=== PATIENT | male | born 1980 | race Caucasian/White ===

== ENCOUNTER 2019-06-30 20:45 | Emergency (ER) | payer SELFPAY ==
[2019-06-30 20:48] VITALS: BP 159/116; PULSE 115; RESP 18; TEMP 36.7; O2SAT 96; BMI 36.1
--- NOTE | 2019-06-30 21:00 | ED_ITS ---
Entered by Laura Reinoso, acting as scribe for Johnnie Murphy MD, [facility] Jun 30, 2019 20:45 Documented by User: Johnnie Murphy MD, [facility] 07/19/19 21:47 HPI - Psych General: Chief Complaint: Psychiatric Symptoms Stated Complaint: si Time Seen by Provider: 06/30/19 21:00 Source: patient Mode of arrival: ambulatory Limitations: no limitations History of Present Illness: HPI Narrative: 38 yo Male presents to ED with complaint of suicidal ideation and ETOH. Pt states that he has been having suicidal thoughts. Pt states that he has been having these thoughts all of his life. Pt states that he would never act on it and doesn't have a plan. Pt states that he drank a fifth of vodka tonight. Pt denies any illicit drug use. Pt states that he noticed a couple of weeks ago that he has a nodule on his right nipple and it is painful. complaint: suicidal ideation Onset (ago): year(s) Duration: constant History of same: Yes Relieving factors: none Exacerbating factors: alcohol Context: recent alcohol abuse Associated psychiatric symptoms: suicidal ideation Associated symptoms: Reports suicidal ideation Treatments prior to arrival: none If self harm: admits thoughts of self harm Review of Systems General: Reports: 10 or more systems reviewed and unremarkable except in HPI and below Const: Denies: fever, chills or body aches Eyes: Denies: change in vision or blurry vision ENMT: Denies: throat pain, enlarged tonsils, painful swallowing, hoarseness, mouth pain or swelling of lips/tongue Card: Denies: chest pain, palpitations, irregular heart rhythm, edema or swelling of feet/ankles Resp: Denies: shortness of breath, productive cough or non-productive cough GI: Denies: abdominal pain, nausea or vomiting : Denies: flank pain, painful urination, urinary frequency, urinary urgency or urinary hesitancy Musc: Denies: neck pain, back pain or extremity swelling Skin/Breast: Denies: rash, itching or redness Neuro: Denies: headache, numbness in extremities or weakness in extremities Psych: Reports: suicidal ideation Endo: Denies: excessive urination, excessive thirst or tired all the time PFS ED PFSH: Medical History Alcohol dependence, uncomplicated Panic disorder [episodic paroxysmal anxiety] Social History Smoking and tobacco status: current every day smoker cigarettes Packs smoked per day: 1 Years cigarettes smoked: 20 Quit status (tobacco): considering quitting Second hand smoke exposure: No Physical Exam Const: COMMON NORMALS: no apparent distress, average body habitus, oriented x3, no limitations, healthy appearing, alert and well nourished HENMT: COMMON NORMALS: normocephalic, head/scalp atraumatic and moist oral mucous membranes HEAD & SCALP: normocephalic and atraumatic Eye: COMMON NORMALS: PERRL, EOMs intact bilaterally, conjunctivae normal and no scleral icterus CONJUNCTIVA: Yes conjunctivae normal PUPIL: Yes PERRL Neck/C-Spine: COMMON NORMALS: full ROM, supple, no meningeal signs, no JVD and no carotid bruits Chest: COMMONS NORMALS: inspection of chest normal and palpation of chest normal Resp: COMMON NORMALS: normal respiratory effort, no retractions, no use of accessory muscles, clear to auscultation bilaterally and percussion normal AUSCULTATION: clear to auscultation bilaterally PERCUSSION: percussion normal Cardio: COMMON NORMALS: no JVD, regular rate, regular rhythm, S1 normal heart sound, S2 normal heart sound, no gallops, no clicks, no murmurs, no rub and peripheral pulses 2+ throughout RATE: regular rate RHYTHM: regular rhythm HEART SOUNDS: S1 normal and S2 normal PERIPHERAL PULSES: pulses 2+ throughout GI: COMMON NORMALS: normal to inspection, nondistended, normoactive bowel sounds, soft to palpation, non-tender, no hepatosplenomegaly, no masses and no bruits PALPATION: Yes soft and Yes no hepatosplenomegaly : COMMON NORMALS: Yes no CVA tenderness BLADDER/KIDNEY EXAM: Yes no CVA tenderness Back/Pelvis: COMMON NORMALS: no CVA tenderness Extremity: COMMON NORMALS: normal to inspection, full ROM, normal capillary refill, no calf tenderness and no pedal edema Neuro: COMMON NORMALS: oriented x3 SENSORIUM/ORIENTATION: Yes alert MENINGEAL SIGNS: Yes no meningeal signs Skin: COMMON NORMALS: no rashes or lesions noted, no wounds, skin turgor normal, no jaundice, no petechiae and no mottling GENERAL SKIN EXAM: no rashes or lesions noted and turgor normal MDM - Psych Lab Data: Labs: Lab Results 06/30/19 06/30/19 06/30/19 Range/Units 00:37 21:15 21:15 WBC 9.3 (4.0-10.0) 10^3/ uL RBC 5.00 (4.1-5.3) 10^6/u L Hgb 15.4 (11.7-16.6) g/dL Hct 45.2 (42.0-52.0) % MCV 90.4 (80-94) fL MCH 30.8 (28.0-34.0) pg MCHC 34.1 (30.0-36.0) g/dL RDW 11.9 L (12.1-15.1) % Plt Count 219 (130-400) 10^3/c mm MPV 10.8 H (7.4-10.4) fL Neut % (Auto) 45.7 % Lymph % (Auto) 42.0 % [place] % (Auto) 7.8 % Eos % (Auto) 3.0 % Baso % (Auto) 1.0 % Neut # (Auto) 4.2 (1.8-7.7) 10^3/u L Lymph # (Auto) 3.9 (0.8-4.8) 10^3/u L [place] # (Auto) 0.7 (0.2-0.9) 10^3/u L Eos # (Auto) 0.3 (0.0-0.8) 10^3/u L Baso # (Auto) 0.1 (0.0-0.1) 10^3/u L Nucleated RBC % (a uto) 0 % Nucleated RBCs # 0.0 /100WBC Sodium 138 (136-145) mmol/L Potassium 3.7 (3.5-5.1) mmol/L Chloride 96 L (98-107) mmol/L Carbon Dioxide 27 (22-29) mmol/L Anion Gap 18.7 (5-19) BUN 11 (6-20) mg/dL Creatinine 0.8 (0.7-1.2) mg/dL GFR Calculation 107.1 (90-130) mL/min Glucose 222 H (65-115) mg/dL Calculated Osmolal ity 289 (285-295) mOsm/k g Calcium 9.6 (8.5-10.5) mg/dL Total Bilirubin 0.3 (0.15-1.2) mg/dL AST 81 H (0-40) U/L ALT 89 H (0-41) U/L Alkaline Phosphata se 87 (40-130) IU/L Total Protein 7.8 (6.6-8.7) g/dL Albumin 4.2 (3.5-5.2) g/dL Globulin 3.6 (1.3-4.6) g/dL Lipase (13-60) U/L TSH 4.48 H (0.27-4.20) uIU/ mL Urine Color (Yellow) Urine Appearance (CLEAR) Urine pH (5-7) Ur Specific Gravit y (1.005-1.030) Urine Protein (Negative) Urine Glucose (UA) (Normal) Urine Ketones (Negative) Urine Blood (Negative) Urine Nitrate (Negative) Urine Bilirubin (NEGATIVE) Urine Urobilinogen (Negative) mg/dL Ur Leukocyte Annabel ase (Negative) Salicylates < 0.3 L (3-10) mg/dL Urine Opiates Scre en (Negative) ng/mL Acetaminophen < 5.0 L (10-30) ug/mL Ur Barbiturates Sc reen (Negative) ng/mL Ur Phencyclidine S crn (Negative) ng/mL Ur Amphetamines Sc reen (Negative) ng/mL U Benzodiazepines Scrn (Negative) ng/mL Urine Cocaine Scre en (Negative) ng/mL U Marijuana (THC) Screen (Negative) ng/mL Ethyl Alcohol Cancelled 256 H 06/30/19 06/30/19 07/01/19 Range/Units 21:30 21:30 00:36 WBC (4.0-10.0) 10^3/ uL RBC (4.1-5.3) 10^6/u L Hgb (11.7-16.6) g/dL Hct (42.0-52.0) % MCV (80-94) fL MCH (28.0-34.0) pg MCHC (30.0-36.0) g/dL RDW (12.1-15.1) % Plt Count (130-400) 10^3/c mm MPV (7.4-10.4) fL Neut % (Auto) % Lymph % (Auto) % [place] % (Auto) % Eos % (Auto) % Baso % (Auto) % Neut # (Auto) (1.8-7.7) 10^3/u L Lymph # (Auto) (0.8-4.8) 10^3/u L [place] # (Auto) (0.2-0.9) 10^3/u L Eos # (Auto) (0.0-0.8) 10^3/u L Baso # (Auto) (0.0-0.1) 10^3/u L Nucleated RBC % (a uto) % Nucleated RBCs # /100WBC Sodium (136-145) mmol/L Potassium (3.5-5.1) mmol/L Chloride (98-107) mmol/L Carbon Dioxide (22-29) mmol/L Anion Gap (5-19) BUN (6-20) mg/dL Creatinine (0.7-1.2) mg/dL GFR Calculation (90-130) mL/min Glucose (65-115) mg/dL Calculated Osmolal ity (285-295) mOsm/k g Calcium (8.5-10.5) mg/dL Total Bilirubin (0.15-1.2) mg/dL AST (0-40) U/L ALT (0-41) U/L Alkaline Phosphata se (40-130) IU/L Total Protein (6.6-8.7) g/dL Albumin (3.5-5.2) g/dL Globulin (1.3-4.6) g/dL Lipase (13-60) U/L TSH (0.27-4.20) uIU/ mL Urine Color Yellow (Yellow) Urine Appearance Clear (CLEAR) Urine pH 5 (5-7) Ur Specific Gravit y 1.020 (1.005-1.030) Urine Protein Neg (Negative) Urine Glucose (UA) 2+ (Normal) Urine Ketones Negative (Negative) Urine Blood Neg (Negative) Urine Nitrate Negative (Negative) Urine Bilirubin Neg (NEGATIVE) Urine Urobilinogen Norm (Negative) mg/dL Ur Leukocyte Annabel ase Negative (Negative) Salicylates (3-10) mg/dL Urine Opiates Scre en Negative (Negative) ng/mL Acetaminophen (10-30) ug/mL Ur Barbiturates Sc reen Negative (Negative) ng/mL Ur Phencyclidine S crn Negative (Negative) ng/mL Ur Amphetamines Sc reen Negative (Negative) ng/mL U Benzodiazepines Scrn Negative (Negative) ng/mL Urine Cocaine Scre en Negative (Negative) ng/mL U Marijuana (THC) Screen Negative (Negative) ng/mL Ethyl Alcohol 171 H 07/01/19 07/01/19 Range/Units 04:20 04:20 WBC (4.0-10.0) 10^3/ uL RBC (4.1-5.3) 10^6/u L Hgb (11.7-16.6) g/dL Hct (42.0-52.0) % MCV (80-94) fL MCH (28.0-34.0) pg MCHC (30.0-36.0) g/dL RDW (12.1-15.1) % Plt Count (130-400) 10^3/c mm MPV (7.4-10.4) fL Neut % (Auto) % Lymph % (Auto) % [place] % (Auto) % Eos % (Auto) % Baso % (Auto) % Neut # (Auto) (1.8-7.7) 10^3/u L Lymph # (Auto) (0.8-4.8) 10^3/u L [place] # (Auto) (0.2-0.9) 10^3/u L Eos # (Auto) (0.0-0.8) 10^3/u L Baso # (Auto) (0.0-0.1) 10^3/u L Nucleated RBC % (a uto) % Nucleated RBCs # /100WBC Sodium (136-145) mmol/L Potassium (3.5-5.1) mmol/L Chloride (98-107) mmol/L Carbon Dioxide (22-29) mmol/L Anion Gap (5-19) BUN (6-20) mg/dL Creatinine (0.7-1.2) mg/dL GFR Calculation (90-130) mL/min Glucose (65-115) mg/dL Calculated Osmolal ity (285-295) mOsm/k g Calcium (8.5-10.5) mg/dL Total Bilirubin (0.15-1.2) mg/dL AST (0-40) U/L ALT (0-41) U/L Alkaline Phosphata se (40-130) IU/L Total Protein (6.6-8.7) g/dL Albumin (3.5-5.2) g/dL Globulin (1.3-4.6) g/dL Lipase 34 (13-60) U/L TSH (0.27-4.20) uIU/ mL Urine Color (Yellow) Urine Appearance (CLEAR) Urine pH (5-7) Ur Specific Gravit y (1.005-1.030) Urine Protein (Negative) Urine Glucose (UA) (Normal) Urine Ketones (Negative) Urine Blood (Negative) Urine Nitrate (Negative) Urine Bilirubin (NEGATIVE) Urine Urobilinogen (Negative) mg/dL Ur Leukocyte Annabel ase (Negative) Salicylates (3-10) mg/dL Urine Opiates Scre en (Negative) ng/mL Acetaminophen (10-30) ug/mL Ur Barbiturates Sc reen (Negative) ng/mL Ur Phencyclidine S crn (Negative) ng/mL Ur Amphetamines Sc reen (Negative) ng/mL U Benzodiazepines Scrn (Negative) ng/mL Urine Cocaine Scre en (Negative) ng/mL U Marijuana (THC) Screen (Negative) ng/mL Ethyl Alcohol 87 H EKG Data^: EKG 1: Attestation: I personally reviewed and interpreted this EKG as follows: EKG interpretation date: 06/30/19 EKG interpretation time: 21:55 Prior EKG tracings: not available for review Interpretation: Normal sinus rhythm. Heart rate [address] changes. Discharge Plan Discharge Patient Disposition: Psych Hosp/Unit w Plan Readm Referrals: Flaco White MD [Primary Care Provider] - [facility], [Family Provider] - Discharge Date/Time: 07/01/19 12:34 Sign Out Sign Out Data: Patient Sign Out occurred on 06/30/19 at 23:37. Patient's care was discussed, and care was transferred from to [facility]. Coding Level of Care Code ED Development Representative for Chg Fwd Exam Comprehensive Documented by User: America Mckinnon 07/01/19 06:20 HPI - Psych General: Chief Complaint: Psychiatric Symptoms Stated Complaint: si Time Seen by Provider: 06/30/19 21:00 PFSH ED PFSH: Medical History Alcohol dependence, uncomplicated Panic disorder [episodic paroxysmal anxiety] Social History Smoking and tobacco status: current every day smoker cigarettes Packs smoked per day: 1 Years cigarettes smoked: 20 Quit status (tobacco): considering quitting Second hand smoke exposure: No MDM - Psych Lab Data: Labs: Lab Results 06/30/19 06/30/19 06/30/19 Range/Units 00:37 21:15 21:15 WBC 9.3 (4.0-10.0) 10^3/ uL RBC 5.00 (4.1-5.3) 10^6/u L Hgb 15.4 (11.7-16.6) g/dL Hct 45.2 (42.0-52.0) % MCV 90.4 (80-94) fL MCH 30.8 (28.0-34.0) pg MCHC 34.1 (30.0-36.0) g/dL RDW 11.9 L (12.1-15.1) % Plt Count 219 (130-400) 10^3/c mm MPV 10.8 H (7.4-10.4) fL Neut % (Auto) 45.7 % Lymph % (Auto) 42.0 % [place] % (Auto) 7.8 % Eos % (Auto) 3.0 % Baso % (Auto) 1.0 % Neut # (Auto) 4.2 (1.8-7.7) 10^3/u L Lymph # (Auto) 3.9 (0.8-4.8) 10^3/u L [place] # (Auto) 0.7 (0.2-0.9) 10^3/u L Eos # (Auto) 0.3 (0.0-0.8) 10^3/u L Baso # (Auto) 0.1 (0.0-0.1) 10^3/u L Nucleated RBC % (a uto) 0 % Nucleated RBCs # 0.0 /100WBC Sodium 138 (136-145) mmol/L Potassium 3.7 (3.5-5.1) mmol/L Chloride 96 L (98-107) mmol/L Carbon Dioxide 27 (22-29) mmol/L Anion Gap 18.7 (5-19) BUN 11 (6-20) mg/dL Creatinine 0.8 (0.7-1.2) mg/dL GFR Calculation 107.1 (90-130) mL/min Glucose 222 H (65-115) mg/dL Calculated Osmolal ity 289 (285-295) mOsm/k g Calcium 9.6 (8.5-10.5) mg/dL Total Bilirubin 0.3 (0.15-1.2) mg/dL AST 81 H (0-40) U/L ALT 89 H (0-41) U/L Alkaline Phosphata se 87 (40-130) IU/L Total Protein 7.8 (6.6-8.7) g/dL Albumin 4.2 (3.5-5.2) g/dL Globulin 3.6 (1.3-4.6) g/dL Lipase (13-60) U/L TSH 4.48 H (0.27-4.20) uIU/ mL Urine Color (Yellow) Urine Appearance (CLEAR) Urine pH (5-7) Ur Specific Gravit y (1.005-1.030) Urine Protein (Negative) Urine Glucose (UA) (Normal) Urine Ketones (Negative) Urine Blood (Negative) Urine Nitrate (Negative) Urine Bilirubin (NEGATIVE) Urine Urobilinogen (Negative) mg/dL Ur Leukocyte Annabel ase (Negative) Salicylates < 0.3 L (3-10) mg/dL Urine Opiates Scre en (Negative) ng/mL Acetaminophen < 5.0 L (10-30) ug/mL Ur Barbiturates Sc reen (Negative) ng/mL Ur Phencyclidine S crn (Negative) ng/mL Ur Amphetamines Sc reen (Negative) ng/mL U Benzodiazepines Scrn (Negative) ng/mL Urine Cocaine Scre en (Negative) ng/mL U Marijuana (THC) Screen (Negative) ng/mL Ethyl Alcohol Cancelled 256 H 06/30/19 06/30/19 07/01/19 Range/Units 21:30 21:30 00:36 WBC (4.0-10.0) 10^3/ uL RBC (4.1-5.3) 10^6/u L Hgb (11.7-16.6) g/dL Hct (42.0-52.0) % MCV (80-94) fL MCH (28.0-34.0) pg MCHC (30.0-36.0) g/dL RDW (12.1-15.1) % Plt Count (130-400) 10^3/c mm MPV (7.4-10.4) fL Neut % (Auto) % Lymph % (Auto) % [place] % (Auto) % Eos % (Auto) % Baso % (Auto) % Neut # (Auto) (1.8-7.7) 10^3/u L Lymph # (Auto) (0.8-4.8) 10^3/u L [place] # (Auto) (0.2-0.9) 10^3/u L Eos # (Auto) (0.0-0.8) 10^3/u L Baso # (Auto) (0.0-0.1) 10^3/u L Nucleated RBC % (a uto) % Nucleated RBCs # /100WBC Sodium (136-145) mmol/L Potassium (3.5-5.1) mmol/L Chloride (98-107) mmol/L Carbon Dioxide (22-29) mmol/L Anion Gap (5-19) BUN (6-20) mg/dL Creatinine (0.7-1.2) mg/dL GFR Calculation (90-130) mL/min Glucose (65-115) mg/dL Calculated Osmolal ity (285-295) mOsm/k g Calcium (8.5-10.5) mg/dL Total Bilirubin (0.15-1.2) mg/dL AST (0-40) U/L ALT (0-41) U/L Alkaline Phosphata se (40-130) IU/L Total Protein (6.6-8.7) g/dL Albumin (3.5-5.2) g/dL Globulin (1.3-4.6) g/dL Lipase (13-60) U/L TSH (0.27-4.20) uIU/ mL Urine Color Yellow (Yellow) Urine Appearance Clear (CLEAR) Urine pH 5 (5-7) Ur Specific Gravit y 1.020 (1.005-1.030) Urine Protein Neg (Negative) Urine Glucose (UA) 2+ (Normal) Urine Ketones Negative (Negative) Urine Blood Neg (Negative) Urine Nitrate Negative (Negative) Urine Bilirubin Neg (NEGATIVE) Urine Urobilinogen Norm (Negative) mg/dL Ur Leukocyte Annabel ase Negative (Negative) Salicylates (3-10) mg/dL Urine Opiates Scre en Negative (Negative) ng/mL Acetaminophen (10-30) ug/mL Ur Barbiturates Sc reen Negative (Negative) ng/mL Ur Phencyclidine S crn Negative (Negative) ng/mL Ur Amphetamines Sc reen Negative (Negative) ng/mL U Benzodiazepines Scrn Negative (Negative) ng/mL Urine Cocaine Scre en Negative (Negative) ng/mL U Marijuana (THC) Screen Negative (Negative) ng/mL Ethyl Alcohol 171 H 07/01/19 07/01/19 Range/Units 04:20 04:20 WBC (4.0-10.0) 10^3/ uL RBC (4.1-5.3) 10^6/u L Hgb (11.7-16.6) g/dL Hct (42.0-52.0) % MCV (80-94) fL MCH (28.0-34.0) pg MCHC (30.0-36.0) g/dL RDW (12.1-15.1) % Plt Count (130-400) 10^3/c mm MPV (7.4-10.4) fL Neut % (Auto) % Lymph % (Auto) % [place] % (Auto) % Eos % (Auto) % Baso % (Auto) % Neut # (Auto) (1.8-7.7) 10^3/u L Lymph # (Auto) (0.8-4.8) 10^3/u L [place] # (Auto) (0.2-0.9) 10^3/u L Eos # (Auto) (0.0-0.8) 10^3/u L Baso # (Auto) (0.0-0.1) 10^3/u L Nucleated RBC % (a uto) % Nucleated RBCs # /100WBC Sodium (136-145) mmol/L Potassium (3.5-5.1) mmol/L Chloride (98-107) mmol/L Carbon Dioxide (22-29) mmol/L Anion Gap (5-19) BUN (6-20) mg/dL Creatinine (0.7-1.2) mg/dL GFR Calculation (90-130) mL/min Glucose (65-115) mg/dL Calculated Osmolal ity (285-295) mOsm/k g Calcium (8.5-10.5) mg/dL Total Bilirubin (0.15-1.2) mg/dL AST (0-40) U/L ALT (0-41) U/L Alkaline Phosphata se (40-130) IU/L Total Protein (6.6-8.7) g/dL Albumin (3.5-5.2) g/dL Globulin (1.3-4.6) g/dL Lipase 34 (13-60) U/L TSH (0.27-4.20) uIU/ mL Urine Color (Yellow) Urine Appearance (CLEAR) Urine pH (5-7) Ur Specific Gravit y (1.005-1.030) Urine Protein (Negative) Urine Glucose (UA) (Normal) Urine Ketones (Negative) Urine Blood (Negative) Urine Nitrate (Negative) Urine Bilirubin (NEGATIVE) Urine Urobilinogen (Negative) mg/dL Ur Leukocyte Annabel ase (Negative) Salicylates (3-10) mg/dL Urine Opiates Scre en (Negative) ng/mL Acetaminophen (10-30) ug/mL Ur Barbiturates Sc reen (Negative) ng/mL Ur Phencyclidine S crn (Negative) ng/mL Ur Amphetamines Sc reen (Negative) ng/mL U Benzodiazepines Scrn (Negative) ng/mL Urine Cocaine Scre en (Negative) ng/mL U Marijuana (THC) Screen (Negative) ng/mL Ethyl Alcohol 87 H Discharge Plan Discharge Patient Disposition: Psych Hosp/Unit w Plan Readm Referrals: Flaco White MD [Primary Care Provider] - [facility], [Family Provider] - Discharge Date/Time: 07/01/19 12:34 Sign Out Sign Out Data: Patient Sign Out occurred on 06/30/19 at 23:37. Patient's care was discussed, and care was transferred from to [facility] Mckinnon. Coding Level of Care Code ED Development Representative for Chg Fwd Exam Comprehensive The documentation recorded by the Kemar gonzales Carmen, accurately reflects the service I personally performed and the decisions made by Katherine flores Adegoke I, MD, [facility] Jun 30, 2019 20:45
--- NOTE | 2019-06-30 21:08 | ECG_ITS ---
Measurements Intervals [place] Rate: 94 P: 51 AL: 165 QRS: 94 QRSD: 104 T: 21 QT: 351 QTc: 441 SINUS RHYTHM BORDERLINE RIGHT AXIS DEVIATION [QRS AXIS > 90] Compared to ECG 12/05/2018 00:34:54 Sinus tachycardia no longer present Electronically Signed On 07-01-2019 9:11:52 CDT by Delia Carreon [id number]
[2019-06-30 21:32] LABS: Basophils # 0.1 10^3/uL (0.0-0.1); Eosinophils # 0.3 10^3/uL (0.0-0.8); Hematocrit 45.2 % (42.0-52.0); Hemoglobin 15.4 g/dL (11.7-16.6); Lymphocytes # 3.9 10^3/uL (0.8-4.8); Mean Corpuscular HGB Conc 34.1 g/dL (30.0-36.0); Mean Corpuscular Hemoglobin 30.8 pg (28.0-34.0); Mean Corpuscular Volume 90.4 fL (80-94); Mean Platelet Volume 10.8 fL (7.4-10.4); Monocytes # 0.7 10^3/uL (0.2-0.9); Monocytes % 7.8 %; Neutrophils # 4.2 10^3/uL (1.8-7.7); Neutrophils % 45.7 %; Nucleated Red Blood Cells % 0 %; Platelet Count 219 10^3/cmm (130-400); Red Cell Distribution Width 11.9 % (12.1-15.1); White Blood Count 9.3 10^3/uL (4.0-10.0)
[2019-06-30 22:02] LABS: Alanine Aminotransferase 89 U/L (0-41); Albumin Level 4.2 g/dL (3.5-5.2); Alcohol Level 256 mg/dL (0-10); Alkaline Phosphatase 87 IU/L (40-130); Anion Gap 18.7 (5-19); Aspartate Amino Transferase 81 U/L (0-40); Blood Urea Nitrogen 11 mg/dL (6-20); Calcium 9.6 mg/dL (8.5-10.5); Carbon Dioxide 27 mmol/L (22-29); Chloride 96 mmol/L (98-107); Globulin 3.6 g/dL (1.3-4.6); Glomerular Filtration Rate 107.1 mL/min (90-130); Glucose 222 mg/dL (65-115); Osmolality Calculated 289 mOsm/kg (285-295); Potassium 3.7 mmol/L (3.5-5.1); Sodium 138 mmol/L (136-145); Thyroid Stimulating Hormone 4.48 uIU/mL (0.27-4.20); Total Bilirubin 0.3 mg/dL (0.15-1.2); Total Protein 7.8 g/dL (6.6-8.7)
[2019-06-30 22:08] LABS: Acetaminophen < 5.0 ug/mL (10-30); Salicylate < 0.3 mg/dL (3-10)
[2019-06-30] MEDS: LORazepam 1 mg Tablet PO (22:23)
[2019-06-30] MEDS: nicotine 21 mg Patch 1 PATCH TRANSDERMA (22:23)
[2019-06-30 22:27] LABS: Add Urine Microscopic? NO
[2019-06-30 22:29] LABS: Amphetamines Screen Urine Negative (Negative); Barbiturates Screen Urine Negative (Negative); Benzodiazepines Screen Urine Negative (Negative); Cocaine Screen Urine Negative (Negative); Opiate Screen Urine Negative (Negative); PCP Screen Urine Negative (Negative); THC Screen Urine Negative (Negative)
[2019-06-30 22:31] LABS: Bilirubin Urine Neg (NEGATIVE); Blood Urine Neg (Negative); Glucose Urine UA 2+ (Normal); Ketones Urine Negative (Negative); Leukocyte Esterase Urine Negative (Negative); Nitrate Urine Negative (Negative); Protein Urine Neg (Negative); Urine Appearance Clear (CLEAR); Urine Color Yellow (Yellow); Urobilinogen Urine Norm (Negative); pH Urine 5 (5-7)
[2019-07-01 02:34] LABS: Alcohol Level 171 mg/dL (0-10)
[2019-07-01 04:43] LABS: Alcohol Level 87 mg/dL (0-10)
--- NOTE | 2019-07-01 05:00 | PC.NURSE ---
Patient resting with eyes closed in bed, 1:1 sitter at bedside.
--- NOTE | 2019-07-01 05:02 | PC.NURSE ---
Patient remains calm and cooperative, resting in bed with eyes closed. 1:1 sitter at bedside.
--- NOTE | 2019-07-01 05:08 | PC.NURSE ---
Received call from [facility]. Intake nurse spoke to patient and patient told nurse that he has had these suicidal thoughts forever and has never acted on them before. He told the intake nurse that [facility] had taken him off all his medications and he just wants his Klonopin. Intake nurse advsied this nurse that she is unsure of whether provider will accept patient to their facility if he is going to be unwilling to take any other anti-depressive medications.
[2019-07-01 06:37] VITALS: BP 148/91; PULSE 106; RESP 20
[2019-07-01 06:38] VITALS: O2SAT 94
[2019-07-01 07:06] VITALS: BP 120/76; PULSE 90; RESP 16; O2SAT 98
[2019-07-01 07:14] VITALS: TEMP 36.7
--- NOTE | 2019-07-01 07:24 | PC.NURSE ---
Patient refusing to sign transfer form, provider notified.
--- NOTE | 2019-07-01 07:36 | PC.NURSE ---
Attempted to call report to [facility], stated nurse would call back.
--- NOTE | 2019-07-01 08:11 | PC.NURSE ---
[facility] states they received fax and will call back.
--- NOTE | 2019-07-01 09:15 | PC.NURSE ---
Paper work re-faxed due to them not receiving every paper faxed prior.
[2019-07-01 10:26] VITALS: BP 124/82; PULSE 92; RESP 18; O2SAT 98
[2019-07-01] MEDS: lidocaine 2% viscous 15 ML, aluminum-mag hydrox-simethicon 30 ML, sucralfate oral liq 1 GM PO (10:40)
[2019-07-01 10:49] LABS: Lipase 34 U/L (13-60)
[2019-07-01] MEDS: LORazepam 1 mg Tablet PO (12:33)
== END 2019-07-01 12:34 | disposition psychiatric hospital, planned readmission (93) ==
PROVIDERS: Family Medicine; Emergency Provider Emergency Medicine; PCP Family Medicine
DX: R45.851 Suicidal ideations (principal); F17.210 Nicotine dependence, cigarettes, uncomplicated
CPT/HCPCS: 12345; 80053; 80306; 80307; 81003; 83690; 84443; 85025; 93005; 93010; 99284; 99285; A9270

== ENCOUNTER 2019-11-09 17:41 | Emergency (ER) | payer SELFPAY ==
[2019-11-09 17:43] VITALS: BP 209/140; PULSE 106; RESP 17; TEMP 36.3; O2SAT 97; BMI 36.5
--- NOTE | 2019-11-09 17:45 | ED_ITS ---
HPI - Back Pain/Injury General: Chief Complaint: Back Pain/Injury Stated Complaint: back pain Time Seen by Provider: 11/09/19 17:43 Source: patient Mode of arrival: wheelchair Limitations: no limitations History of Present Illness: HPI Narrative: Patient is a 39-year-old male who presents to ED today for evaluation of mid back pain. Patient tells me he has suffered from chronic back pain but states he will have exacerbations if he bends/twists/turns/lifts wrong. He states 2 days ago he heard a pop in his back. He states pain seemed to go away on its own however earlier today he was bending over to untie his dog from a leash and heard the same pop and states pain since then has been severe. He states he initially noticed numbness to his left arm however this is subsided. 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 He often complained about the questions being asked and generally uncooperative. MD elicited complaint: back pain Pertinent past history: prior back pain Onset (ago): hour(s) Timing: constant Severity: severe Pain scale (0-10): 10 Similar Symptoms Previously: Yes Location: thoracic spine Exacerbating factors: movement, supine positioning, sitting upright, walking, coughing/sneezing and lifting Relieving factors: none Context: bending Associated symptoms: Reports tingling/numbness/burning (L arm however this has subsided ); Deny abdominal pain, chills, dysuria, fever(s) or urinary urgency Work related injury: No Review of Systems Const: Denies: fever(s) or chills Card: Denies: chest pain Resp: Denies: dyspnea GI: Denies: abdominal pain : Denies: flank pain, difficulty urinating, dysuria, urinary frequency or urinary urgency Musc: Reports: neck pain (chronic-at baseline) and back pain; Denies: extremity pain, extremity swelling, joint pain or joint swelling Neuro: Denies: headache(s), weakness in extremities or sensory changes (L arm- subsided now) [facility] ED PFSH: Medical History (Updated 11/09/19 @ 19:56 by IMAN Hernández) Alcohol dependence, uncomplicated Panic disorder [episodic paroxysmal anxiety] Social History Smoking and tobacco status: current every day smoker cigarettes Packs smoked per day: 1 Years cigarettes smoked: 20 Quit status (tobacco): considering quitting Second hand smoke exposure: No Physical Exam Const: COMMON NORMALS: no acute distress, patient oriented x3, no limitations and alert HENMT: COMMON NORMALS: normocephalic and atraumatic HEAD & SCALP: normocephalic and atraumatic Neck/C-Spine: COMMON NORMALS: full ROM OTHER: pt jumps off table when I place even a finger on his neck-not even palpate; he tells me I always hurt in my neck but that's not my problem today! Resp: COMMON NORMALS: normal respiratory effort and clear to auscultation bilaterally AUSCULTATION: clear to auscultation bilaterally Cardio: COMMON NORMALS: regular rate and regular rhythm RATE: regular rate RHYTHM: regular rhythm Back/Pelvis: THORACIC SPINE/UPPER BACK: Yes thoracic spinal tenderness (see below) and Yes paraspinal muscle tenderness LUMBAR SPINE/LOWER BACK: Yes normal to inspection, No lumbar spinal tenderness and No paraspinal muscle tenderness PELVIS: Yes buttocks normal SACROILIAC JOINTS: Yes SI joints normal OTHER: pt becomes angry and jumps off table and reaches around his back to swat at my hand with even my finger touching his back-not even palpating; I told patient it is important to perform a thorough physical evaluation; overall very uncooperative with examination; he tells me he is tender to mid-back and to the left Extremity: COMMON NORMALS: normal to inspection and full ROM GENERAL: Yes normal exam except as noted Neuro: COMMON NORMALS: patient oriented x3, moves all extremities, no focal motor deficits and no sensory deficits noted SENSORIUM/ORIENTATION: Yes alert Skin: COMMON NORMALS: no rashes or lesions noted GENERAL SKIN EXAM: no ra shes or lesions noted Course Vital Signs: Vital signs: Vital Signs Temperature 97.4 F L 11/09/19 17:43 Pulse Rate 88 11/09/19 19:43 Respiratory Rate 17 11/09/19 19:43 Blood Pressure 154/78 11/09/19 19:43 Pulse Oximetry 99 11/09/19 19:43 MDM - Back Pain/Injury MDM Narrative: Medical decision making narrative: asking for refills on BP/G ERD meds Imaging Data^: XR thoracic: My impression: no acute fxs noted; anterior osteophytes noted-unchanged from previous Discharge Plan Discharge Patient Disposition: Home Clinical Impression: Strain of mid-back, Hypertension Condition: Stable Prescriptions: New cyclobenzaprine 10 mg tablet 10 mg PO TID Qty: 14 RF: 0 Medrol (Earl) 4 mg tablets,dose pack See Rx Instructions .ROUTE .COMPLEX Qty: 21 RF: 0 Continued valsartan 80 mg tablet 160 mg PO DAILY Qty: 30 RF: 0 amlodipine 10 mg tablet 10 mg PO DAILY Qty: 30 RF: 0 omeprazole 20 mg capsule,delayed release(DR/EC) 40 mg PO DAILY Qty: 30 RF: 0 hydrochlorothiazide 25 mg tablet 25 mg PO QAM Qty: 30 RF: 0 No Action sertraline [Zoloft] 100 mg tablet 150 mg PO QAM Qty: 45 RF: 2 hydroxyzine pamoate 50 mg capsule 50 mg PO QID PRN (Reason: anxiety) Qty: 120 RF: 2 gabapentin 400 mg capsule 400 mg PO QID Qty: 120 RF: 2 Discharge Orders: Discharge Order (Routine); Ordered 11/09/19 Ordered By: Skye Mcnair Referrals: Flaco White MD [Primary Care Provider] - Patient Instructions: Muscle Spasm (ED), Back Pain (ED) Interventions: ED Discharge Assessment Last Done: 11/09/19 19:43 ED Charges Last Done: 11/09/19 19:43 Discharge Date/Time: 11/09/19 19:46 Coding Level of Care Code ED Forward Air Controller/Air Officer for Chg Fwd Exam Comprehensive
[2019-11-09 17:56] VITALS: BP 174/128; PULSE 104; O2SAT 98
--- NOTE | 2019-11-09 18:01 | XRR_ITS ---
PROCEDURE INFORMATION: Exam: XR Thoracic Spine, 3 Views Exam date and time: 11/09/2019 6:54 PM Age: 39 years old Clinical indication: Pain in thoracic spine; Additional info: Back pain TECHNIQUE: Imaging protocol: XR of the thoracic spine, 3 views. COMPARISON: CR Thoracic Spine 3+ views* [id number] 02/04/2018 12:17 AM FINDINGS: Vertebrae: There is mild dextroscoliosis. There is diffuse osteopenia. Chronic appearing mild anterior wedging fracture deformities are noted at the thoracolumbar junction. There is no acute fracture or subluxation. Mild diffuse degenerative changes are noted. Soft tissues: Unremarkable. XR/XR thoracic spine 3V* [id number] IMPRESSION: There is no acute fracture or subluxation.
[2019-11-09] MEDS: orphenadrine 30 mg/mL Inj 2 mL 60 MG IM (18:18)
[2019-11-09] MEDS: ketorolac 60 mg/2 mL INJ IM (18:21)
[2019-11-09] MEDS: dexamethasone 10 mg/mL INJ 8 MG IM (18:25)
[2019-11-09 19:28] VITALS: RESP 18; O2SAT 98
[2019-11-09] MEDS: morphine 4 mg/mL SDV 1 mL IM (19:28)
[2019-11-09 19:43] VITALS: BP 154/78; PULSE 88; RESP 17; O2SAT 99
== END 2019-11-09 19:46 | disposition home or self-care (01) ==
PROVIDERS: Emergency Provider Physician Assistant; PCP Family Medicine
DX: S29.012A Strain of muscle and tendon of back wall of thorax, initial encounter (principal); I10 Essential (primary) hypertension; X50.1XXA Overexertion from prolonged static or awkward postures, initial encounter; F17.210 Nicotine dependence, cigarettes, uncomplicated
CPT/HCPCS: 12345; 72072; 96372; 99282; 99283; J1100; J1885; J2270; J2360

== ENCOUNTER 2020-02-16 16:39 | Emergency (ER) | payer SELFPAY ==
[2020-02-16 16:42] VITALS: BP 138/87; PULSE 114; RESP 18; TEMP 37.2; O2SAT 97; BMI 34.0
--- NOTE | 2020-02-16 16:58 | W.ED.ABDPA2 ---
HPI - Abdominal Pain General: Chief Complaint: Abdominal Pain Stated Complaint: abd pain/ possible pancreitis Time Seen by Provider: 02/16/20 16:56 History of Present Illness: HPI narrative: 39-year-old male with a history of pancreatitis. He comes in the front door complaining of epigastric and left upper quadrant pain radiating into his back. He says he has been sick for several days on and off he has been throwing up he says. He is also been having some diarrhea. He notes that there is blood in his stool. No fever. Suspiciously, he appears intoxicated. He says some things that do not make sense, and is somewhat somnolent. MD elicited complaint: abdominal pain Pertinent past history: other Onset (ago): day(s) Pain Consistency: constant Location: Epigastric and LUQ Severity: moderate Radiation: back Relieving factors: nothing Associated Symptoms: Reports change in bowel habits, diarrhea, dyspepsia, melena, nausea and vomiting; Denies dysuria and fever(s) Review of Systems Narrative: Review of systems is taken from the patient, but he appears at least somewhat intoxicated, and may be a poor historian Const: Denies: fever(s) Eyes: Denies: change in vision ENMT: Denies: odynophagia or sinus pain Card: Denies: chest pain, palpitations or irregular heart rhythm Resp: Reports: productive cough; Denies: dyspnea, non-productive cough or wheezing GI: Reports: nausea, vomiting, diarrhea, change in bowel habits and melena : Denies: dysuria Musc: Reports: back pain; Denies: neck pain Skin/Breast: Denies: rash or erythema Neuro: Reports: confusion; Denies: headache(s), dizziness, vertigo or seizure-like activity Psych: Denies: anxiety [facility] ED PFSH: Medical History (Updated 11/17/19 @ 00:00 by ) Alcohol dependence, uncomplicated Panic disorder [episodic paroxysmal anxiety] Social History Smoking and tobacco status: current every day smoker cigarettes Packs smoked per day: 1 Years cigarettes smoked: 20 Quit status (tobacco): considering quitting Second hand smoke exposure: No Physical Exam Const: GENERAL APPEARANCE: lethargic ORIENTATION/CONSCIOUSNESS: Yes oriented to person, Yes oriented to place and Yes lethargic; not oriented to time HENMT: COMMON NORMALS: normocephalic, external ears normal and Normal external nose present HEAD & SCALP: normocephalic FACE & SINUS: normal facial exam NOSE: Normal external nose present and No nasal discharge present EXTERNAL EAR: Yes external ears normal MOUTH: tongue normal Eye: COMMON NORMALS: Equal, round and reactive pupils present, EOMs intact bilaterally and conjunctivae normal EYELID: eyelids normal CONJUNCTIVA: Yes conjunctivae normal PUPIL: Yes Equal, round and reactive pupils present Neck/C-Spine: GENERAL: No tracheal deviation Chest: COMMONS NORMALS: normal inspection of the chest Resp: COMMON NORMALS: clear to auscultation bilaterally EFFORT & INSPECTION: No tachypneic, No respiratory distress, No retractions, No uses accessory muscles and No tracheal deviation AUSCULTATION: clear to auscultation bilaterally, no rhonchi, no wheezes and lung sounds not diminished Cardio: COMMON NORMALS: regular rate and regular rhythm RATE: regular rate RHYTHM: regular rhythm HEART SOUNDS: no murmurs PERIPHERAL PULSES: radial pulses present GI: INSPECTION: No abdominal distension AUSCULTATION: No Hyperactive bowel sounds present and No Hypoactive bowel sounds present PALPATION: Yes Guarding due to palpation present (GI) and No Rigid due to palpation PERCUSSION: no dullness to percussion and no tympanic to percussion Neuro: SENSORIUM/ORIENTATION: Yes oriented to person, Yes oriented to place, No oriented to time and Yes lethargic Psych: APPEARANCE: Yes unkempt ATTITUDE: Yes bizarre and Yes agitated ACTIVITY/MOTOR BEHAVIOR: Yes psychomotor slowing and Yes restless SPEECH: Yes slurred MOOD & AFFECT: Yes irritable and Yes fearful THOUGHT PROCESS: Circumstantial thought process present and incoherent THOUGHT CONTENT: No Suicidality present ATTENTION/CONCENTRATION: Yes attention grossly impaired and Yes concentration grossly impaired MEMORY/COGNITION: Yes memory grossly impaired and Yes cognition grossly impaired INSIGHT: Limited insight present (Psych) JUDGEMENT: Limited judgement present (Psych) Skin: COMMON NORMALS: no rashes or lesions noted GENERAL SKIN EXAM: no rashes or lesions noted Course Vital Signs: Vital signs: Vital Signs Temperature 99.0 F 02/16/20 16:42 Pulse Rate 114 H 02/16/20 16:42 Respiratory Rate 18 02/16/20 16:42 Blood Pressure 138/87 02/16/20 16:42 Pulse Oximetry 97 02/16/20 16:42 MDM - Abdominal Pain MDM Narrative: Medical decision making narrative: 39-year-old male who evidently with a history of pancreatitis. He has a reticulocyte behavior and appears intoxicated in the emergency department however, his white blood cell count was slightly elevated at 14.3. With a history of pancreatitis, CT was ordered. It shows no acute findings. Prior to of his CT results returning, the patient became agitated, got up, removed his own IV, and signed AMA papers to leave. He was later found out that his alcohol level is 332. A parcel carrier was with him. At the time, he was alert to person, place, situation, and relatively to time. Lab Data: Labs: Lab Results 02/16/20 02/16/20 02/16/20 Range/Units 17:21 17:21 17:21 WBC 14.3 H (4.0-10.0) 10^3/ uL RBC 5.69 H (4.1-5.3) 10^6/u L Hgb 15.6 (11.7-16.6) g/dL Hct 48.2 (42.0-52.0) % MCV 84.7 (80-94) fL MCH 27.4 L (28.0-34.0) pg MCHC 32.4 (30.0-36.0) g/dL RDW 11.9 L (12.1-15.1) % Plt Count 203 (130-400) 10^3/c mm MPV 10.6 H (7.4-10.4) fL Neut % (Auto) 55.1 % Lymph % (Auto) 34.0 % Forrest % (Auto) 7.3 % Eos % (Auto) 2.0 % Baso % (Auto) 1.1 % Neut # (Auto) 7.89 H (1.8-7.7) 10^3/u L Lymph # (Auto) 4.9 H (0.8-4.8) 10^3/u L Forrest # (Auto) 1.0 H (0.2-0.9) 10^3/u L Eos # (Auto) 0.3 (0.0-0.8) 10^3/u L Baso # (Auto) 0.2 H (0.0-0.1) 10^3/u L Nucleated RBC % (a uto) 0 % Nucleated RBCs # 0.0 /100WBC Sodium 133 L (136-145) mmol/L Potassium 3.5 (3.5-5.1) mmol/L Chloride 91 L (98-107) mmol/L Carbon Dioxide 27 (22-29) mmol/L Anion Gap 18.5 (5-19) BUN 12 (6-20) mg/dL Creatinine 0.5 L (0.7-1.2) mg/dL GFR Calculation 183.2 H (90-130) mL/min Glucose 289 H (65-115) mg/dL Calculated Osmolal ity 286 (285-295) mOsm/k g Lactate 3.2 H (0.5-2.2) mmol/L Calcium 9.4 (8.5-10.5) mg/dL Total Bilirubin 0.4 (0.15-1.2) mg/dL AST 112 H (0-40) U/L ALT 110 H (0-41) U/L Alkaline Phosphata se 218 H (40-130) IU/L C-Reactive Protein 27.3 H (0.0-4.9) mg/L Total Protein 8.0 (6.6-8.7) g/dL Albumin 4.2 (3.5-5.2) g/dL Globulin 3.8 (1.3-4.6) g/dL Lipase 62 H (13-60) U/L Urine Color (Yellow) Urine Appearance (CLEAR) Urine pH (5-7) Ur Specific Gravit y (1.005-1.030) Urine Protein (Negative) Urine Glucose (UA) (Normal) Urine Ketones (Negative) Urine Blood (Negative) Urine Nitrate (Negative) Urine Bilirubin (Negative) Urine Urobilinogen (Negative) mg/dL Ur Leukocyte Annabel ase (Negative) Ethyl Alcohol (0-10) mg/dL 02/16/20 02/16/20 Range/Units 17:21 17:42 WBC (4.0-10.0) 10^3/ uL RBC (4.1-5.3) 10^6/u L Hgb (11.7-16.6) g/dL Hct (42.0-52.0) % MCV (80-94) fL MCH (28.0-34.0) pg MCHC (30.0-36.0) g/dL RDW (12.1-15.1) % Plt Count (130-400) 10^3/c mm MPV (7.4-10.4) fL Neut % (Auto) % Lymph % (Auto) % Forrest % (Auto) % Eos % (Auto) % Baso % (Auto) % Neut # (Auto) (1.8-7.7) 10^3/u L Lymph # (Auto) (0.8-4.8) 10^3/u L Forrest # (Auto) (0.2-0.9) 10^3/u L Eos # (Auto) (0.0-0.8) 10^3/u L Baso # (Auto) (0.0-0.1) 10^3/u L Nucleated RBC % (a uto) % Nucleated RBCs # /100WBC Sodium (136-145) mmol/L Potassium (3.5-5.1) mmol/L Chloride (98-107) mmol/L Carbon Dioxide (22-29) mmol/L Anion Gap (5-19) BUN (6-20) mg/dL Creatinine (0.7-1.2) mg/dL GFR Calculation (90-130) mL/min Glucose (65-115) mg/dL Calculated Osmolal ity (285-295) mOsm/k g Lactate (0.5-2.2) mmol/L Calcium (8.5-10.5) mg/dL Total Bilirubin (0.15-1.2) mg/dL AST (0-40) U/L ALT (0-41) U/L Alkaline Phosphata se (40-130) IU/L C-Reactive Protein (0.0-4.9) mg/L Total Protein (6.6-8.7) g/dL Albumin (3.5-5.2) g/dL Globulin (1.3-4.6) g/dL Lipase (13-60) U/L Urine Color Straw (Yellow) Urine Appearance Clear (CLEAR) Urine pH 6.5 (5-7) Ur Specific Gravit y 1.005 (1.005-1.030) Urine Protein Neg (Negative) Urine Glucose (UA) Trace H (Normal) Urine Ketones Negative (Negative) Urine Blood Neg (Negative) Urine Nitrate Negative (Negative) Urine Bilirubin Neg (Negative) Urine Urobilinogen Norm (Negative) mg/dL Ur Leukocyte Annabel ase Negative (Negative) Ethyl Alcohol 332 H* (0-10) mg/dL Discharge Plan Discharge Patient Disposition: Left Against Medical Advice Prescriptions: No Action gabapentin 400 mg capsule 400 mg PO QID Qty: 120 RF: 2 venlafaxine [Effexor XR] 75 mg capsule,extended release 24hr 75 mg PO DAILY Qty: 30 RF: 2 sertraline [Zoloft] 100 mg tablet 150 mg PO QAM Qty: 45 RF: 2 hydroxyzine pamoate 50 mg capsule 50 mg PO QID PRN (Reason: anxiety) Qty: 120 RF: 2 cyclobenzaprine 10 mg tablet 10 mg PO TID Qty: 14 RF: 0 Medrol (Earl) 4 mg tablets,dose pack See Rx Instructions .ROUTE .COMPLEX Qty: 21 RF: 0 valsartan 80 mg tablet 160 mg PO DAILY Qty: 30 RF: 0 amlodipine 10 mg tablet 10 mg PO DAILY Qty: 30 RF: 0 omeprazole 20 mg capsule,delayed release(DR/EC) 40 mg PO DAILY Qty: 30 RF: 0 hydrochlorothiazide 25 mg tablet 25 mg PO QAM Qty: 30 RF: 0 Referrals: Flaco White MD [Primary Care Provider] - Discharge Date/Time: 02/16/20 19:13 Coding Level of Care Code ED Motorcycle Service Technician for Jack Manning
[2020-02-16] MEDS: sodium chloride 0.9% 1,000 ML 999 ML IV (17:18)
[2020-02-16 17:34] LABS: Basophils # 0.2 10^3/uL (0.0-0.1); Basophils % 1.1 %; Eosinophils # 0.3 10^3/uL (0.0-0.8); Hematocrit 48.2 % (42.0-52.0); Hemoglobin 15.6 g/dL (11.7-16.6); Lymphocytes # 4.9 10^3/uL (0.8-4.8); Mean Corpuscular HGB Conc 32.4 g/dL (30.0-36.0); Mean Corpuscular Hemoglobin 27.4 pg (28.0-34.0); Mean Corpuscular Volume 84.7 fL (80-94); Mean Platelet Volume 10.6 fL (7.4-10.4); Monocytes % 7.3 %; Neutrophils # 7.89 10^3/uL (1.8-7.7); Neutrophils % 55.1 %; Nucleated Red Blood Cells % 0 %; Platelet Count 203 10^3/cmm (130-400); Red Blood Count 5.69 10^6/uL (4.1-5.3); Red Cell Distribution Width 11.9 % (12.1-15.1); White Blood Count 14.3 10^3/uL (4.0-10.0)
[2020-02-16 17:47] LABS: Add Urine Microscopic? NO
[2020-02-16] MEDS: haloperidol inj 5 mg/mL INJ 1 mL IVP (17:47)
[2020-02-16 17:55] LABS: Bilirubin Urine Neg (Negative); Blood Urine Neg (Negative); Glucose Urine UA Trace (Normal); Ketones Urine Negative (Negative); Leukocyte Esterase Urine Negative (Negative); Nitrate Urine Negative (Negative); Protein Urine Neg (Negative); Specific Gravity, Urine 1.005 (1.005-1.030); Urine Appearance Clear (CLEAR); Urine Color Straw (Yellow); Urobilinogen Urine Norm (Negative); pH Urine 6.5 (5-7)
--- NOTE | 2020-02-16 17:58 | CTR_ITS ---
PROCEDURE INFORMATION: Exam: CT Abdomen And Pelvis With Contrast Exam date and time: 02/16/2020 6:04 PM Age: 39 years old Clinical indication: Abdominal pain; Localized; Left upper quadrant (luq); Patient HX: C/O luq pain w HX of pancreatitis; Additional info: Abd pain TECHNIQUE: Imaging protocol: Computed tomography of the abdomen and pelvis with intravenous contrast. Radiation optimization: All CT scans at this facility use at least one of these dose optimization techniques: automated exposure control; mA and/or kV adjustment per patient size (includes targeted exams where dose is matched to clinical indication); or iterative reconstruction. Contrast material: OMNI 300; Contrast volume: 95 ml; Contrast route: INTRAVENOUS (IV); COMPARISON: CT abdomen pelvis w con* [id number] 10/11/2018 12:09 AM RADIATION DOSE METRICS: Total DLP (mGy-cm): 1115.62 FINDINGS: Liver: Diffuse fatty infiltration of the liver. Hepatomegaly measuring 24 cm. Gallbladder and bile ducts: Normal. No calcified stones. No ductal dilation. Pancreas: Normal. No ductal dilation. Spleen: Normal. No splenomegaly. Adrenal glands: Normal. No mass. Kidneys and ureters: Subcentimeter hypodensities in the left kidney are unchanged and too small to characterize. No follow-up is recommended. The right kidney is normal. No hydronephrosis. Stomach and bowel: Mild diverticulosis of the sigmoid colon without diverticulitis. Appendix: The appendix is normal. Intraperitoneal space: Unremarkable. No free air. No significant fluid collection. Vasculature: Unremarkable. No abdominal aortic aneurysm. Lymph nodes: Subcentimeter retroperitoneal lymph nodes are most likely reactive. Urinary bladder: Unremarkable as visualized. Reproductive: Calcifications in the prostate. Bones/joints: Unremarkable. No acute fracture. Soft tissues: Unremarkable. CT/CT abdomen pelvis w con* [id number] IMPRESSION: 1. No acute abnormality identified in the abdomen or pelvis. 2. Enlarged liver with fatty infiltration. Radiation Dose CTDIVOL = (mGy): DLP = 1115.62 (mGy-cm)
[2020-02-16 18:04] LABS: Alanine Aminotransferase 110 U/L (0-41); Albumin Level 4.2 g/dL (3.5-5.2); Alkaline Phosphatase 218 IU/L (40-130); Anion Gap 18.5 (5-19); Aspartate Amino Transferase 112 U/L (0-40); Blood Urea Nitrogen 12 mg/dL (6-20); C Reactive Protein 27.3 mg/L (0.0-4.9); Calcium 9.4 mg/dL (8.5-10.5); Carbon Dioxide 27 mmol/L (22-29); Chloride 91 mmol/L (98-107); Globulin 3.8 g/dL (1.3-4.6); Glomerular Filtration Rate 183.2 mL/min (90-130); Glucose 289 mg/dL (65-115); Lipase 62 U/L (13-60); Osmolality Calculated 286 mOsm/kg (285-295); Potassium 3.5 mmol/L (3.5-5.1); Sodium 133 mmol/L (136-145); Total Bilirubin 0.4 mg/dL (0.15-1.2)
[2020-02-16 18:07] LABS: Lactate (Lactic Acid level) 3.2 mmol/L (0.5-2.2)
[2020-02-16] MEDS: iohexol 300 mg/mL 100 mL Btl IV (18:51)
--- NOTE | 2020-02-16 19:08 | PC.NURSE ---
190 patient pulled IV asked to be released or I am leaving - Dr Felix informed stated AMA form to patient
[2020-02-16 19:19] LABS: Alcohol Level 332 mg/dL (0-10)
== END 2020-02-16 19:13 | disposition left against medical advice (07) ==
PROVIDERS: Emergency Provider Emergency Medicine; PCP Family Medicine
DX: R10.9 Unspecified abdominal pain (principal); Z53.21 Procedure and treatment not carried out due to patient leaving prior to being seen by health care provider; F17.210 Nicotine dependence, cigarettes, uncomplicated
CPT/HCPCS: 12345; 36415; 74177; 80053; 80307; 81003; 83605; 83690; 85025; 86140; 96361; 96374; 96375; 99282; 99283; J1630; J7030; Q9967